=== PATIENT | male | born 1980 | race Caucasian/White ===

== ENCOUNTER 2023-05-19 16:42 | Emergency (ER) | payer OTHER ==
[~2023-05-19] VITALS: Ht 175.3 cm; Wt 73.0 kg
[2023-05-19 16:52] VITALS: BP 182/100; PULSE 100; RESP 18; TEMP 98.7; O2SAT 96
[2023-05-19 17:09] LABS: BASOPHILS % 0.6 % (0.0-2.0); EOSINOPHILS % 0.7 % (0.0-5.0); HEMATOCRIT. 42.9 % (42.0-52.0); HEMOGLOBIN. 14.2 g/dL (14.0-18.0); LYMPHOCYTES % 27.4 % (20.0-50.0); MEAN CORPUSCULAR HEMOGLOBIN 28.8 pg (28.0-32.0); MEAN CORPUSCULAR VOLUME 87.2 fL (80.0-94.0); MEAN PLATELET VOLUME 7.9 fl (7.4-10.4); MONOCYTES % 12.3 % (2.0-8.0); PLATELET 352 x1000/uL (130-400); RED BLOOD CELL COUNT 4.92 mill/uL (4.7-6.1); RED CELL DISTRIBUTION WIDTH 13.8 % (11.6-14.6); WHITE BLOOD COUNT 9.3 x1000/uL (4.5-11.0)
[2023-05-19 17:22] LABS: CHLORIDE 105 mEq/L (98-107); INDEX HEMOLYSI 1 (1-3); INDEX ICTERIC 1 (1-4); INDEX LIPEMIC 1 (1-3); POTASSIUM 3.9 mEq/L (3.5-5.1); SODIUM 139 mEq/L (136-145)
[2023-05-19 17:27] LABS: ALANINE AMINOTRANSFERASE 61 IU/L (13-61); ALBUMIN 3.9 g/dL (3.4-5.0); CALCIUM 9.2 mg/dL (8.5-10.1); CARBON DIOXIDE 29 mEq/L (21-32); GLUCOSE 111 mg/dL (70-105); UREA NITROGEN BLOOD 14 mg/dL (7-21)
[2023-05-19 17:32] LABS: ASPARTATE AMINOTRANSFERASE 30 IU/L (15-37); BILIRUBIN TOTAL 0.2 mg/dL (0.1-1.0); CREATININE 1.2 mg/dL (0.6-1.3); PROTEIN TOTAL 8.3 g/dL (6.0-8.3); TROPONIN I HIGH SENSITIVITY 12 ng/L (<78)
[2023-05-19] MEDS ORDERED: AMLODIPINE 5MG TABLET PO NR (18:45)
[2023-05-19] MEDS ORDERED: AMLODIPINE 10MG TABLET PO ONE (18:45)
[2023-05-19] MEDS ORDERED: AMLO5TAB88 MT (20:27)
== END 2023-05-19 20:31 | disposition left against medical advice (07) ==
LOC: ER 16:42
DX: I16.0 Hypertensive urgency (principal)
CPT/HCPCS: 80053; 85025; 84484; 36415; 71045; 93005; 99285; Z7610